=== PATIENT | female | born 1950 | race Two or more races ===

== ENCOUNTER 2018-09-19 06:02 | Day surgery (SDC) | payer MEDICARE, MEDICAID ==
--- NOTE | 2018-09-14 11:55 | Pre-Procedure Note/Attestation ---
Pre-Procedure Note/Attestation Complete Prior to Procedure Planned Procedure: right Procedure Narrative: 1. CATARACT EXTRACTION WITH PHACO AND PC IOL IMPLANTATION, RIGHT EYE. 2. LIMBAL RELAXING INCISION, RIGHT EYE Indications for Procedure Pre-Operative Diagnosis: 1. CATARACT ,RIGHT EYE. 2. ASTIGMATISM, RIGHT EYE. Attestation I attest that I discussed the nature of the procedure; its benefits; risks and complications; and alternatives (and the risks and benefits of such alternatives ), prior to the procedure, with the patient (or the patient's legal technology sales representative). I attest that, if there was a reasonable possibility of needing a blood transfusion, the patient (or the patient's legal technology sales representative) was given the [place] Department of Health Services standardized written summary, pursuant to the Ram[employer] [place] Blood Safety Act ([place] Health and Safety Code # 1645, as amended). I attest that I re-evaluated the patient just prior to the surgery and that there has been no change in the patient's H&P, except as documented below: George Francis MD Sep 14, 2018 11:55
[2018-09-19] VITALS (8 sets, daily range): BP systolic 113–138; BP diastolic 49–76
[~2018-09-19] VITALS: Ht 165.1 cm; Wt 56.7 kg
[~2018-09-19 06:02] MED LIST: Tetracaine 0.5% Opth 4ml Soln RIGHT EYE SCH; acetaZOLAMIDE 125mg tab ORAL ONE
[2018-09-19] MEDS: Vigamox Opth Soln 3ml RIGHT EYE SCH ×3 (06:36→06:49)
[2018-09-19] MEDS: Tropicamide 1% Opth 15ml Soln RIGHT EYE SCH ×3 (06:36→06:49)
[2018-09-19] MEDS: Diclofenac Sod 0.1% Op Soln RIGHT EYE SCH ×3 (06:37→06:49)
[2018-09-19] MEDS: Akten 3.5% 1ml Btl RIGHT EYE SCH ×3 (06:37→06:49)
[2018-09-19] MEDS: Phenylephrine 10% Opth Soln 5ml RIGHT EYE SCH ×3 (06:37→06:49)
[2018-09-19] MEDS ORDERED: MECLIZINE HCL25 MG ORAL (06:53)
[2018-09-19] MEDS ORDERED: ZETIA10 MG ORAL (06:53)
[2018-09-19] MEDS ORDERED: AMLODIPINE BESYL5 MG ORAL (06:53)
[2018-09-19] MEDS ORDERED: Propofol 200mg/20ml IV ONE (08:00)
[2018-09-19] MEDS ORDERED: fentaNYL 100 mcg/2 mL IV ONE (08:00)
[2018-09-19] MEDS ORDERED: Sterile Water Irrig 1000ml IRRIG ONE (08:00)
[2018-09-19] MEDS ORDERED: NS Irrig 1000ml ONE (08:00)
[2018-09-19] MEDS ORDERED: LR 1000ml ONE (08:00)
[2018-09-19] MEDS ORDERED: Midazolam 2mg/2ml Inj ONE (08:00)
[2018-09-19] MEDS ORDERED: BSS 15ml BTL ONE (08:01)
[2018-09-19] MEDS ORDERED: Lidocaine 1% MPF 10mg/ml 5ml ONE (08:01)
[2018-09-19] MEDS ORDERED: BSS 500ml btl ONE (08:01)
[2018-09-19] MEDS ORDERED: Dexamethasone 4mg/ml vial ONE (08:01)
[2018-09-19] MEDS ORDERED: Povidone-Iodine 5% opth solution ONE (08:01)
[2018-09-19] MEDS ORDERED: EPINEPHrine 1mg/1ml Amp ONE (08:01)
[2018-09-19] MEDS ORDERED: Sodium Hyaluronate 10 mg/ml 0.85ml ONE (08:02)
[2018-09-19] MEDS ORDERED: LR 1000ml 1,000 ML IVLG SCH (08:28)
--- NOTE | 2018-09-19 08:28 | Anethesia Preoperative Eval ---
Anesthesia Pre-op PMH/ROS General Date of Evaluation: Sep 19, 2018 Time of Evaluation: 08:10 Anesthesiologist: Lizbeth ASA Score: ASA 2 Mallampati Score Class I : Soft palate, uvula, fauces, pillars visible Class II: Soft palate, uvula, fauces visible Class III: Soft palate, base of uvula visible Class IV: Only hard plate visible Mallampati Classification: Class II Surgeon: Tito Diagnosis: R eye cataract Surgical Procedure: R eye catarct extraction Anesthesia History: none Family History: no anesthesia problems Allergies: Coded Allergies: No Known Allergies (Unverified , 09/14/18) Medications: see eMAR Patient NPO?: Yes Past Medical History Cardiovascular: Reports: HTN; Denies: CAD, [place], valve dz, arrhythmia, other Pulmonary: Denies: asthma, COPD, DELLA, other Gastrointestinal/Genitourinary: Reports: GERD; Denies: CRI, ESRD, other Neurologic/Psychiatric: Denies: dementia, CVA, depression/anxiety, TIA, other Endocrine: Denies: DM, hypothyroidism, steroids, other HEENT: Denies: cataract (L), cataract (R), glaucoma, ATKA (L), ATKA (R), other Hematology/Immune: Denies: anemia, DVT, bleeding disorder, other Musculoskeletal/Integumentary: Reports: DJD; Denies: OA, RA, DDD, edema, other PMH Narrative: as above PSxH Narrative: Bilateral pterygium Anesthesia Pre-op Phys. Exam Physician Exam Last Vital Signs Date Time Temp Pulse Resp B/P (MAP) Pulse Ox O2 Delivery O2 Flow Rate FiO2 09/19/18 07:01 Room Air 09/19/18 06:44 98.0 65 20 124/72 98 Constitutional: NAD Neurologic: CN 2-12 intact Cardiovascular: RRR Respiratory: CTA Gastrointestinal: S/NT/ND Airway Exam Mallampati Score: Class II MO: full Neck: flexible Teeth: missing Dentures: upper, lower Anesthesia Pre-op A/P Labs see chart Studies Pre-op Studies: EKG - NSR Risk Assessment & Plan Assessment: ASA 2 Plan: MAC Status Change Before Surgery: No Pre-Antibiotics Drug: none Paddy Nieves MD Sep 19, 2018 08:28
[2018-09-19] MEDS ORDERED: DiphenhydrAMINE 50mg/ml Inj IVP PRN (08:30)
[2018-09-19] MEDS ORDERED: fentaNYL 100 mcg/2 mL IV PRN (08:30)
--- NOTE | 2018-09-19 08:54 | Immediate Post-Op Evaluation ---
Immediate Post-Op Evalulation Immediate Post-Op Evalulation Procedure: R eye cataract extraction with IOL Date of Evaluation: Sep 19, 2018 Time of Evaluation: 08:53 IV Fluids: 300 Blood Products: n0ne Estimated Blood Loss: none Urinary Output: none Blood Pressure Systolic: 128 Blood Pressure Diastolic: 74 Pulse Rate: 68 Respiratory Rate: 20 O2 Sat by Pulse Oximetry: 99 Temperature (Fahrenheit): 97.5 Pain Score (1-10): 1 Nausea: No Vomiting: No Complications none Patient Status: awake, patent, none Hydration Status: adequate Paddy Nieves MD Sep 19, 2018 08:54
[2018-09-19] MEDS ORDERED: acetaZOLAMIDE 125mg tab ONE (09:07)
--- NOTE | 2018-09-19 10:29 | 48 Hour Post Anesthesia Eval ---
Post Anesthesia Evaluation Procedure: R eye cataract extraction with IOL Date of Evaluation: Sep 19, 2018 Time of Evaluation: 10:28 Blood Pressure Systolic: 138 0: 76 Pulse Rate: 72 Respiratory Rate: 20 Temperature (Fahrenheit): 97.6 O2 Sat by Pulse Oximetry: 98 Airway: patent Nausea: No Vomiting: No Pain Intensity: 2 Hydration Status: adequate Cardiopulmonary Status: stable Mental Status/LOC: patient returned to baseline Follow-up Care/Observations: n/a Post-Anesthesia Complications: none Follow-up care needed: ready to discharge Paddy Nieves MD Sep 19, 2018 10:29
--- NOTE | 2018-09-19 10:56 | Discharge Summary ---
Discharge Summary Discharge Summary Discharge Summary DATE OF ADMISSION:09/19/2018 DATE OF DISCHARGE: 09/19/2018 REASON FOR HOSPITALIZATION: 1- Cataract right eye 2- Astigmatism, right eye SURGERY PERFORMED: 1- Cataract extraction with phaco, right eye 2- LRI OD CONDITION IN THE HOSPITAL:The patient tolerated the surgery without complications. DISCHARGE CONDITION: The patient was stable at discharge. DISCHARGE MEDICATIONS: 1. Vigamox eye drops one drop q.i.d, OD 2. Prednisolone eye drop qid, OD 3. Prolenza one drop QD, OD POSTOPERATIVE ORDERS: The patient has to rest at home. No bending, No lifting, No watching Television tonight. POSTOPERATIVE FOLLOW UP: The patient will be followed in my office tomorrow morning at 7 o'clock. George Francis MD Sep 19, 2018 10:56
--- NOTE | 2018-09-19 11:01 | Brief Operative Note ---
Immediate Post Operative Note Operative Note Chief Complaint: Blurry vision difficulty driving and reading, right eye Pre-op Diagnosis: 1. CATARACT ,RIGHT EYE. 2. ASTIGMATISM, RIGHT EYE. Procedure: 1- Cataract extraction with phaco and PC IOl implantation, right eye. 2- Limbal relaxing incision ( LRI ), right eye Post-op Diagnosis: same as pre-op Surgeon: George Francis MD Traffic Control Signaler: None Additional Surgeons: None Anesthesiologist: Dr. Nieves Anesthesia: MAC Specimen: none Complications: none Condition: stable Fluids: 400ml Estimated Blood Loss: none Drains: none Implant(s) used?: Yes - Monofocal PC IOL Implanted in the right eye without complication George Francis MD Sep 19, 2018 11:01
--- NOTE | 2018-09-21 13:13 | Operative Note - Dictated ---
DATE OF OPERATION: 09/19/2018 FACILITY: [facility]. SURGEON: George Francis M.D. VICE PRESIDENT OF PROCUREMENT: None. ANESTHESIOLOGIST: Paddy Nieves M.D. ANESTHESIA: Monitored anesthesia care (MAC). PREOPERATIVE DIAGNOSES: 1. Cataract of the right eye. 2. Astigmatism, right eye. POSTOPERATIVE DIAGNOSES: 1. Cataract of the right eye. 2. Astigmatism, right eye. SURGERY PERFORMED: 1. Cataract extraction with phacoemulsification and posterior chamber intraocular lens implantation in the right eye. 2. Limbal relaxing incision (LRI), right eye. INDICATION FOR SURGERY: The patient is a 68-year-old lady with history of osteoarthritis, coronary artery disease, hypertension, hypercholesterolemia. The patient is taking atorvastatin, aspirin, losartan/hydrochlorothiazide mg, and metoprolol succinate. She is a former smoker, but now denies smoking. She does not drink. She is not allergic to any medications. She is complaining of blurry vision in the right eye. She has had previous surgeries in both eyes, in the right eye and the left eye. On examination of the right eye, the cornea is clear, but there is a scar of recent surgery including the cornea and that is why the patient had some astigmatism. Anterior chamber is clean and quiet. Pupillary reflexes normal. There is no RAPD. Funduscopy showed macula. The periphery retina is flat. The optic disk is normal. To improve her vision in the right eye, the cataract has to be removed and posterior chamber intraocular lens has to be implanted. The astigmatism has to be addressed as well. INFORMED CONSENT: The nature of the surgery, risks, benefits, alternatives, and potential complications were all explained in detail to the patient. The potential complications including, but not limited to bleeding, infection, posterior capsular rupture, lens subluxation, flat anterior chamber, iris prolapse, uveitis, corneal edema, macular edema, endophthalmitis, retinal detachment, loss of vision, and even loss of the eye were all explained in detail to the patient. The patient voiced understanding and accepted all the complications. The alternatives including accommodating lens, multifocal lens, toric lens, and conventional cataract surgery with limbal relaxing incision for treatment of astigmatism all were explained to the patient in detail, the patient voiced understanding. The patient elected to have cataract surgery with insertion of multifocal lens. The patient voiced understanding. The patient elected to have conventional cataract surgery with insertion of multifocal lens and also the patient wishing to have limbal relaxing incision (LRI) for treatment of astigmatism. Then she signed the consent form, which is in the chart. DESCRIPTION OF SURGERY AND FINDINGS: Following that, the patient taken to the operating room in a stable condition. Lidocaine gel, Akten 3.5% applied to the conjunctiva of the right eye. Anesthesia was given by the anesthesiologist, Dr. Nieves. After adequate anesthesia and sedation had been achieved, the right eye was prepped and draped in a sterile fashion for intraocular surgery. Following that, a speculum was placed in the right eye. The patient was taken to the operation room, the cornea was marked at 180 and 90 meridian. In the operating room, using a corneal marker and marking pen, the steep meridian of the cornea was marked. Following that, using a shahbaz knife with 550 micron blade, two parallel incisions were placed on the steep meridian of the cornea to treat the astigmatism. Following that, using a Super Sharp knife, a clear corneal side port was created. A 1% lidocaine without preservative (MPF) was injected into the anterior chamber. Viscoelastic agent, Healon, was injected into the anterior chamber. Following that, using a 2.8 mm keratome, clear corneal temporal keratotomy was performed. Viscoelastic agent Healon was injected into the anterior chamber again. Following that, an anterior capsulotomy in the fashion of capsulorrhexis was performed under the viscoelastic agent beautifully. Following that, all the viscoelastic agent was removed from the anterior chamber. Following that, hydrodissection and hydrodelineation was performed using balanced salt solution and the nucleus was freed. Following that, a clear fresh viscoelastic agent, Healon, was injected into the anterior chamber again to protect the endothelium of the cornea. Following that, using a phacoemulsification machine in the fashion of horizontal chop, the nucleus was removed in toto. Following that, cortical material was removed from the capsular bag using irrigation and aspiration unit. Following that, the capsular bag was filled with viscoelastic agent, Healon. Following that, a +23.5 diopter PCB00 foldable IOL with serial number [id number] was injected into the capsular bag. Using a Sinskey hook, the lens was manipulated within the proper position. Following that, all viscoelastic agent was removed from the anterior and posterior part of the lens and the anterior chamber was filled with balanced salt solution. The wound was checked for leakage and there was no leakage. Vigamox eye drops were applied to the conjunctiva of the right eye. At the end of the surgery, the eye was patched with a clear, sterile fenestrated shield. Following that, the patient was transferred to the recovery room. In the recovery room, 125 mg Diamox was given by mouth stat. Postoperative orders and directions were given. The patient will be discharged home upon stabilization. The patient will be followed in the office tomorrow morning. George Francis M.D. DR: Charmaine JOB#: [id number] CC:
== END 2018-09-19 10:05 | disposition home or self-care (01) ==
LOC: SUR 06:02 → EDBD 07:30 → SUR 10:05
DX: H26.9 Unspecified cataract (principal); H52.201 Unspecified astigmatism, right eye; I10 Essential (primary) hypertension; K21.9 Gastro-esophageal reflux disease without esophagitis; M19.90 Unspecified osteoarthritis, unspecified site; E78.00 Pure hypercholesterolemia, unspecified; Z79.82 Long term (current) use of aspirin; Z87.891 Personal history of nicotine dependence; I11.9 Hypertensive heart disease without heart failure
CPT/HCPCS: 65772; 66984; J0171; J1100; J2250; J2704; J3010; V2632; 94003; 94150

== ENCOUNTER 2018-10-17 06:26 | Day surgery (SDC) | payer MEDICARE, MEDICAID ==
--- NOTE | 2018-10-16 08:46 | Pre-Procedure Note/Attestation ---
Pre-Procedure Note/Attestation Complete Prior to Procedure Planned Procedure: left Procedure Narrative: Blurry vision and difficulty reading and watching TV, and driving. Indications for Procedure Pre-Operative Diagnosis: 1-Cataract , left eye. 2- Astigmatism, Left eye. Attestation I attest that I discussed the nature of the procedure; its benefits; risks and complications; and alternatives (and the risks and benefits of such alternatives ), prior to the procedure, with the patient (or the patient's legal sales representative groceries). I attest that, if there was a reasonable possibility of needing a blood transfusion, the patient (or the patient's legal sales representative groceries) was given the [place] Department of Health Services standardized written summary, pursuant to the [employer] [place] Blood Safety Act ([place] Health and Safety Code # 1645, as amended). I attest that I re-evaluated the patient just prior to the surgery and that there has been no change in the patient's H&P, except as documented below: George Francis MD Oct 16, 2018 08:46
[~2018-10-17] VITALS: Ht 160 cm; Wt 56.7 kg
[2018-10-17] VITALS (9 sets, daily range): BP systolic 122–151; BP diastolic 64–77
[~2018-10-17 06:26] MED LIST changes: +AMLODIPINE BESYL5 MG ORAL; +MECLIZINE HCL25 MG ORAL; -Tetracaine 0.5% Opth 4ml Soln RIGHT EYE SCH; +ZETIA10 MG ORAL; -acetaZOLAMIDE 125mg tab ORAL ONE
[2018-10-17] MEDS ORDERED: Phenylephrine 10% Opth Soln 5ml ONE (06:51)
[2018-10-17] MEDS ORDERED: Akten 3.5% 1ml Btl ONE (06:51)
[2018-10-17] MEDS ORDERED: Tropicamide 1% Opth 15ml Soln ONE (06:51)
[2018-10-17] MEDS ORDERED: Vigamox Opth Soln 3ml ONE (06:52)
[2018-10-17] MEDS ORDERED: Diclofenac Sod 0.1% Op Soln ONE (06:52)
[2018-10-17] MEDS: Phenylephrine 10% Opth Soln 5ml LEFT EYE SCH ×3 (07:02→07:29)
[2018-10-17] MEDS: Tropicamide 1% Opth 15ml Soln LEFT EYE SCH ×3 (07:02→07:29)
[2018-10-17] MEDS: Vigamox Opth Soln 3ml LEFT EYE SCH ×3 (07:03→07:29)
[2018-10-17] MEDS: Diclofenac Sod 0.1% Op Soln LEFT EYE SCH ×3 (07:03→07:29)
[2018-10-17] MEDS ORDERED: EPINEPHrine 1mg/1ml Amp ONE (07:10)
[2018-10-17] MEDS ORDERED: Sodium Hyaluronate 10 mg/ml 0.85ml ONE (07:10)
[2018-10-17] MEDS ORDERED: Dexamethasone 4mg/ml vial ONE (07:10)
[2018-10-17] MEDS ORDERED: Povidone-Iodine 5% opth solution ONE (07:10)
[2018-10-17] MEDS ORDERED: Lidocaine 1% MPF 10mg/ml 5ml ONE ×2 (07:10→09:18)
[2018-10-17] MEDS ORDERED: BSS 500ml btl ONE (07:10)
[2018-10-17] MEDS ORDERED: BSS 15ml BTL ONE (07:10)
[2018-10-17] MEDS ORDERED: LR 1000ml 1,000 ML IVLG SCH (08:41)
--- NOTE | 2018-10-17 08:41 | Anethesia Preoperative Eval ---
Anesthesia Pre-op PMH/ROS General Date of Evaluation: Oct 17, 2018 Anesthesiologist: Morgan ASA Score: ASA 2 Mallampati Score Class I : Soft palate, uvula, fauces, pillars visible Class II: Soft palate, uvula, fauces visible Class III: Soft palate, base of uvula visible Class IV: Only hard plate visible Mallampati Classification: Class II Surgeon: Tito Diagnosis: Left cataract Surgical Procedure: Left cataract xtraction wtih IOL Anesthesia History: none Family History: no anesthesia problems Allergies: Coded Allergies: No Known Allergies (Unverified , 09/14/18) Medications: see eMAR Patient NPO?: Yes NPO Date: Oct 16, 2018 NPO Time: 22:00 Past Medical History Cardiovascular: Reports: HTN, other - HLD; Denies: CAD, [place], valve dz, arrhythmia Pulmonary: Reports: asthma; Denies: COPD, DELLA, other Gastrointestinal/Genitourinary: Denies: GERD, CRI, ESRD, other Neurologic/Psychiatric: Reports: depression/anxiety, other - vertigo; Denies: dementia, CVA, TIA Endocrine: Denies: DM, hypothyroidism, steroids, other HEENT: Reports: cataract (L); Denies: cataract (R), glaucoma, DEERING (L), DEERING (R), other Hematology/Immune: Denies: anemia, DVT, bleeding disorder, other Musculoskeletal/Integumentary: Reports: OA; Denies: RA, DJD, DDD, edema, other PSxH Narrative: right cataract Anesthesia Pre-op Phys. Exam Physician Exam Last Vital Signs Date Time Temp Pulse Resp B/P (MAP) Pulse Ox O2 Delivery O2 Flow Rate FiO2 10/17/18 07:27 Room Air 10/17/18 07:08 97.6 67 18 135/77 98 Constitutional: NAD Cardiovascular: RRR Respiratory: CTA Airway Exam Mallampati Score: Class II MO: limited ROM: limited Anesthesia Pre-op A/P Labs see chart Studies Pre-op Studies: EKG - sr Risk Assessment & Plan Assessment: ASA II Plan: MAC Status Change Before Surgery: No Pre-Antibiotics Drug: N/A Rocio Gold MD Oct 17, 2018 08:41
[2018-10-17] MEDS ORDERED: LORazepam Inj 2mg/ml 1ml IV PRN (08:45)
[2018-10-17] MEDS ORDERED: DiphenhydrAMINE 50mg/ml Inj IVP PRN (08:45)
[2018-10-17] MEDS ORDERED: Sterile Water Irrig 1000ml IRRIG ONE (09:00)
[2018-10-17] MEDS ORDERED: LR 1000ml ONE (09:00)
[2018-10-17] MEDS ORDERED: fentaNYL 100 mcg/2 mL IV ONE (09:18)
[2018-10-17] MEDS ORDERED: Akten 3.5% 1ml Btl LEFT EYE ONE (09:30)
--- NOTE | 2018-10-17 10:03 | Immediate Post-Op Evaluation ---
Immediate Post-Op Evalulation Immediate Post-Op Evalulation Procedure: Left cataract extraction with IOL Date of Evaluation: Oct 17, 2018 Time of Evaluation: 10:05 IV Fluids: 400 Blood Products: 0 Estimated Blood Loss: 0 Urinary Output: 0 Blood Pressure Systolic: 151 Blood Pressure Diastolic: 75 Pulse Rate: 66 Respiratory Rate: 14 O2 Sat by Pulse Oximetry: 99 Temperature (Fahrenheit): 97.3 Pain Score (1-10): 0 Nausea: No Vomiting: No Complications 0 Patient Status: awake, reacts, patent, none Hydration Status: adequate Drug: N/A Rocio Gold MD Oct 17, 2018 10:03
--- NOTE | 2018-10-17 10:03 | 48 Hour Post Anesthesia Eval ---
Post Anesthesia Evaluation Procedure: Left cataract extraction with IOL Date of Evaluation: Oct 17, 2018 Airway: patent Nausea: No Vomiting: No Pain Intensity: 0 Hydration Status: adequate Cardiopulmonary Status: at baseline Mental Status/LOC: patient returned to baseline Post-Anesthesia Complications: 0 Follow-up care needed: ready to discharge Rocio Gold MD Oct 17, 2018 10:03
--- NOTE | 2018-10-17 10:16 | Discharge Summary ---
Discharge Summary Discharge Summary Discharge Summary DATE OF ADMISSION: 10/17/18 DATE OF DISCHARGE: o10/17/18 REASON FOR HOSPITALIZATION: 1- Cataract, left eye 2- Astigmatism, left eye. SURGERY PERFORMED: 1- Cataract extraction with phaco 2- LRI, OS CONDITION IN THE HOSPITAL:The patient tolerated the surgery without complications. DISCHARGE CONDITION: The patient was stable at discharge. DISCHARGE MEDICATIONS: 1. Vigamox eye drops one drop q.i.d, OS 2. Prednisolone one drop q.i.d, OS 3. Prolensa, one drop QD, OS POSTOPERATIVE ORDERS: The patient has to rest at home. No bending, No lifting, No watching Television tonight. POSTOPERATIVE FOLLOW UP: The patient will be followed in my office tomorrow morning at 7 o'clock. George Francis MD Oct 17, 2018 10:16
--- NOTE | 2018-10-17 10:19 | Brief Operative Note ---
Immediate Post Operative Note Operative Note Chief Complaint: Blurry vision difficulty driving and reading, left eye Pre-op Diagnosis: 1-Cataract , left eye. 2- Astigmatism, Left eye. Procedure: 1- Cataract extraction with phaco and PC IOL Implantation, Left eye 2-Limbal relaxing incision ( LRI ), left eye Surgeon: George brito MD Head Porter Baggage: none Additional Surgeons: none Anesthesiologist: Dr. Mora Anesthesia: MAC Specimen: none Complications: none Condition: stable Fluids: 300ml Estimated Blood Loss: none Drains: none Implant(s) used?: Yes - Monofocal PC IOL implanted in the left eye without complication George Brito MD Oct 17, 2018 10:19
[2018-10-17] MEDS ORDERED: acetaZOLAMIDE 125mg tab ONE (10:29)
[2018-10-17] MEDS ORDERED: acetaZOLAMIDE 125mg tab ORAL SCH (10:30)
--- NOTE | 2018-10-17 11:00 | Pre-op HX & Phy Repo 2 SIG ---
DATE OF ADMISSION: 10/17/2018 PRESURGICAL INTERNAL MEDICINE HISTORY AND PHYSICAL REASON FOR EVALUATION: I was asked by Dr. George Francis to see this 68-year-old female, who is going for elective surgery on the left eye. The patient has age-related cataract, left eye. Please see History and Physical by Dr. George Francis. PAST MEDICAL HISTORY: Remarkable for hypertension, history of bronchial asthma attack three years ago, and history of hyperlipidemia. Denies history of stroke or seizures. No history of Parkinson disease. Denies history of anemia, thyroid problem, or renal failure. The patient has no history of heart attack. Denies chest pain or palpitation. The patient has no history of diabetes or arthritis. The patient has a history of hyperlipidemia. PAST SURGICAL HISTORY: Right eye, cataract. MEDICATIONS: Amlodipine, meclizine, simvastatin, and vitamin D. ALLERGIES: Not known. HABITS: Smoke for approximately 50 years. Currently smoking about five cigarettes a day. Denies alcohol habit or street drugs. FAMILY HISTORY: The patient's father from cancer of gallbladder and mother of old age, 92. PHYSICAL EXAMINATION: GENERAL: The patient is alert, small-framed female. Weight 125 pounds and 5 feet 3 inches tall. VITAL SIGNS: Blood pressure 135/77, temperature 97.6, pulse regular at 67 per minute, and O2 saturation 98% on room air. SKIN: Clear, warm, and dry. No rashes or ulcers. LYMPH NODES: Not enlarged. HEENT: Head, normocephalic. Eyes, full description per Dr. George Francis. Mouth, clear and moist. No dentures. NECK: No jugular venous distention. Carotids artery +2. Trachea midline. CHEST: No deformity or asymmetry. LUNGS: Clear to auscultation and percussion. No rales or rhonchi. No wheezing. ABDOMEN: Soft, benign. Liver and spleen not enlarged. No rebound. EXTREMITIES: No peripheral edema. No varicose veins. No calf tenderness. No deformity. GENITOURINARY TRACT: Denies dysuria. No CVA tenderness. NERVOUS SYSTEM: No tremor. No nystagmus. DIAGNOSTIC DATA: EKG, sinus rhythm, T-wave abnormality, consider ischemia. The patient did not eat or drink from 10:30 p.m. yesterday. LABORATORY DATA: White blood cells 6.1, hemoglobin 14.8, hematocrit 43.6. Blood sugar 97. BUN 12, creatinine 0.8, calcium 8.2, sodium 140, potassium 4.6. IMPRESSION: 1. Cataract, left eye. 2. Hypertension, controlled. 3. History of bronchial asthma. 4. Hyperlipidemia. 5. EKG changes with T-wave abnormal, consider ischemia. PLAN: Cataract extraction, left eye with intraocular lens implant per Dr. George Francis. CONCLUSION: The patient has had EKG changes. She is asymptomatic. Blood pressure controlled. The patient did not eat or drink from 10:30 p.m. yesterday. The patient's laboratory work in normal limits. The patient's condition optimized for surgery. Thank you very much, Dr. Francis, for privilege to participate in presurgical care of this interesting patient. Aline Khalil M.D. DR: JONATHAN JOB#: [id number] CC:
--- NOTE | 2018-10-18 01:15 | Operative Note - Dictated ---
DATE OF OPERATION: 10/17/2018 FACILITY: [facility]. SURGEON: George Francis M.D. FRIEND OF THE COURT: None. ANESTHESIOLOGIST: Dr. Mora. ANESTHESIA: Monitored anesthesia care (MAC). PREOPERATIVE DIAGNOSES: 1. Cataract, left eye. 2. Astigmatism, left eye. POSTOPERATIVE DIAGNOSES: 1. Cataract, left eye. 2. Astigmatism, left eye. SURGERY PERFORMED: 1. Cataract extraction with phacoemulsification and posterior chamber intraocular lens implantation in the left eye. 2. Limbal relaxing incision (LRI) in the left eye. INDICATION FOR SURGERY: The patient is a 68-year-old lady with history of osteoarthritis, coronary artery disease, hypertension, hypercholesterolemia. The patient is taking atorvastatin, aspirin, losartan/hydrochlorothiazide, and metoprolol succinate. She is a former smoker, but now denies smoking. She does not drink. She is not allergic to any medications. She is complaining of blurry vision in the left eye. She has had cataract surgery in the right one month ago and she is happy with the result. She has had previous surgeries in both eyes for pterygium as well. The cornea had scar because of her previous treatment surgery and still has recurrent pterygium. Anterior chamber is clean and quiet but shallow. Pupillary reflexes normal. There is no RAPD. Funduscopy showed normal macula. The periphery retina is flat. The optic disk is normal. To improve her vision in the left eye, the cataract has to be removed and posterior chamber intraocular lens has to be implanted. The astigmatism has to be addressed as well. INFORMED CONSENT: The nature of the surgery, risks, benefits, alternatives, and potential complications were all explained in detail to the patient. The potential complications including, but not limited to bleeding, infection, posterior capsular rupture, lens subluxation, flat anterior chamber, iris prolapse, uveitis, corneal edema, macular edema, endophthalmitis, retinal detachment, loss of vision, and even loss of the eye and even were all explained in detail to the patient. The patient voiced understanding and accepted all the complications. The alternatives including accommodating lens, multifocal lens, toric lens, and conventional cataract surgery with limbal relaxing incision for treatment of astigmatism all were explained to the patient and the patient voiced understanding. The patient elected to have conventional cataract surgery with insertion of monofocal lens and she agreed to have limbal relaxing incision (LRI) for treatment of astigmatism. Then she signed the consent form, which is in the chart. DESCRIPTION OF SURGERY AND FINDINGS: Following that, the patient taken to the operating room in a stable condition. Lidocaine gel, Akten 3.5% applied to the conjunctiva of the left eye. IV sedation was given by the anesthesiologist, Dr. Mora. After adequate anesthesia and sedation had been achieved, the left eye was prepped and draped in a sterile fashion for intraocular surgery. Following that, a speculum was placed in the left eye. Before the patient was taken to the operation room, the cornea was marked at 180 and 90 meridian. In the operating room, using a corneal marker and marking pen, the steep meridian of the cornea was marked. Following that, using a shahbaz knife with 550 micron blade, two parallel incisions were placed on the steep meridian of the cornea to treat the astigmatism. Following that, using a Super Sharp knife, a clear corneal side port was created. A 1% lidocaine without preservative (MPF) was injected into the anterior chamber. Viscoelastic agent, Healon, was injected into the anterior chamber. Following that, using a 2.8 mm keratome, clear corneal temporal keratotomy was performed. Viscoelastic agent Healon was injected into the anterior chamber again. Following that, an anterior capsulotomy was performed in the fashion of capsulorrhexis beautifully. Following that, whole viscoelastic agent was removed from the anterior chamber. Following that, hydrodissection and hydrodelineation was performed and nucleus was freed. Following that, a clear fresh viscoelastic agent, Healon, was injected into the anterior chamber to protect the endothelium of the cornea. Following that, using a phacoemulsification machine in the fashion of horizontal chop, the nucleus was removed in toto. Following that, cortical material was removed from the capsular bag and capsular bag was polished. Following that, the capsular bag was filled with viscoelastic agent, Healon. Following that, a +24.0 diopter PCB00 foldable IOL with serial number was injected into the capsular bag. Using a Sinskey hook, the lens was manipulated within the proper position. Following that, whole viscoelastic agent was removed from the anterior and posterior part of the lens and the anterior chamber was filled with balanced salt solution. Following that, the wound was hydrated with balanced salt solution. Following that, the wound was checked for leakage and there was no leakage. Vigamox eye drops were applied to the conjunctiva of the left eye. The patient tolerated surgery without complications. At the end of the surgery, the eye was patched with a clear, sterile fenestrated shield. Following that, the patient was transferred to the recovery room. In the recovery room, 125 mg Diamox was given by mouth stat. Postoperative orders and directions were given. The patient will be discharged home upon stabilization. George Francis M.D. DR: Devorah JOB#: [id number] CC:
--- NOTE | 2018-10-18 13:57 | Physician Query ---
--------- THIS DOCUMENT IS A PERMANENT PART OF THE MEDICAL RECORD --------- PLEASE COMPLETE DOCUMENT BEFORE SIGNING Dear Dr. SNYDER Date: Revenue Analyst/CDS Name: SULEMA, TIFFANY Exercise your independent professional judgment when responding to the query. Questions asked do not imply a particular answer is desired or expected. We greatly appreciate your clarification on this issue. CLINICAL DOCUMENTATION STATES: Date of procedure: 10/17/2018 PREOPERATIVE DIAGNOSES: 1. Cataract, left eye. 2. Astigmatism, left eye. POSTOPERATIVE DIAGNOSES: 1. Cataract, left eye. 2. Astigmatism, left eye. She is complaining of blurry vision in the left eye. She has had cataract surgery in the right one month ago and she is happy with the result. She has had previous surgeries in both eyes for pterygium as well. The cornea had scar because of her previous treatment surgery and still has recurrent pterygium. Anterior chamber is clean and quiet but shallow. Pupillary reflexes normal. There is no RAPD. Funduscopy showed normal macula. The periphery retina is flat. The optic disk is normal. To improve her vision in the left eye, the cataract has to be removed and posterior chamber intraocular lens has to be implanted. The astigmatism has to be addressed as well. Please respond to the following question: PLEASE SPECIFY, IF KNOWN, THE TYPE OF CATARACT IN THE LEFT EYE? PHYSICIAN RESPONSE: COLTON SNYDER M.D. DATE & TIME [facility]
== END 2018-10-17 11:15 | disposition home or self-care (01) ==
LOC: SUR 06:26
DX: H25.12 Age-related nuclear cataract, left eye (principal); M19.90 Unspecified osteoarthritis, unspecified site; I11.9 Hypertensive heart disease without heart failure; I10 Essential (primary) hypertension; E78.00 Pure hypercholesterolemia, unspecified; Z79.82 Long term (current) use of aspirin; Z87.891 Personal history of nicotine dependence; E78.5 Hyperlipidemia, unspecified; F32.9 Major depressive disorder, single episode, unspecified; F41.9 Anxiety disorder, unspecified
CPT/HCPCS: 66984; 66999; J0171; J1100; J3010; V2632; 94003; 94150

== ENCOUNTER 2019-04-03 06:07 | Day surgery (SDC) | payer MEDICARE, MEDICAID ==
[2019-04-03] VITALS (11 sets, daily range): BP systolic 136–163; BP diastolic 64–79
[~2019-04-03] VITALS: Ht 160 cm; Wt 51.7 kg
[~2019-04-03 06:07] MED LIST changes: +Tetracaine 0.5% Opth 4ml Soln LEFT EYE ONE
[2019-04-03 06:48] LABS: BASOPHILS % (AUTO) 1.1 % (0.0-2.0); HEMATOCRIT 44.7 % (37.0-47.0); LYMPHOCYTES % (AUTO) 34.6 % (20.0-45.0); MEAN CORPUSCULAR VOLUME 85 FL (80-99); MONOCYTES % (AUTO) 6.9 % (1.0-10.0); NEUTROPHILS % (AUTO) 56.5 % (45.0-75.0); PLATELET COUNT 280 K/UL (150-450); RED BLOOD COUNT 5.28 M/UL (4.20-5.40); WHITE BLOOD COUNT 7.9 K/UL (4.8-10.8)
[2019-04-03] MEDS ORDERED: METOPROLOL SUCC25 MG ORAL (06:50)
[2019-04-03] MEDS ORDERED: ASPIRIN81 MG ORAL (06:50)
[2019-04-03 06:57] LABS: ANION GAP 10 mmol/L (5-15); BLOOD UREA NITROGEN 13 mg/dL (7-18); CALCIUM 8.9 MG/DL (8.5-10.1); CARBON DIOXIDE 26 MMOL/L (21-32); CHLORIDE 103 MMOL/L (98-107); CREATININE 0.9 MG/DL (0.55-1.30); POTASSIUM 3.7 MMOL/L (3.5-5.1); SODIUM 139 MMOL/L (136-145)
[2019-04-03] MEDS ORDERED: Maxitrol Opth Susp 5ml ONE (06:59)
[2019-04-03] MEDS ORDERED: Polysporin Opth Oint 3.5gm ONE (06:59)
[2019-04-03] MEDS ORDERED: BSS 15ml BTL ONE (07:00)
[2019-04-03] MEDS ORDERED: Povidone-Iodine 5% opth solution ONE (07:00)
[2019-04-03 07:08] LABS: INR 0.9 (0.9-1.1)
[2019-04-03] MEDS ORDERED: Sodium Chloride 10ml vial INJ ONE (07:11)
[2019-04-03] MEDS ORDERED: Lidocaine 1% MPF 10mg/ml 5ml ONE (07:11)
[2019-04-03] MEDS ORDERED: LR 1000ml 1,000 ML IVLG SCH (07:20)
--- NOTE | 2019-04-03 07:23 | Anethesia Preoperative Eval ---
Anesthesia Pre-op PMH/ROS General Date of Evaluation: Apr 03, 2019 Time of Evaluation: 07:24 Anesthesiologist: Halle ASA Score: ASA 3 Mallampati Score Class I : Soft palate, uvula, fauces, pillars visible Class II: Soft palate, uvula, fauces visible Class III: Soft palate, base of uvula visible Class IV: Only hard plate visible Mallampati Classification: Class II Surgeon: Tito Diagnosis: Pterygium OS Surgical Procedure: Pterygium Removal OS Anesthesia History: none Family History: no anesthesia problems Allergies: Coded Allergies: No Known Allergies (Unverified , 09/14/18) Medications: see eMAR Patient NPO?: Yes Past Medical History Cardiovascular: Reports: HTN, other - HL Pulmonary: Reports: asthma Neurologic/Psychiatric: Reports: depression/anxiety HEENT: Reports: cataract (L), cataract (R) Musculoskeletal/Integumentary: Reports: OA Anesthesia Pre-op Phys. Exam Physician Exam Last Vital Signs Date Time Temp Pulse Resp B/P (MAP) Pulse Ox O2 Delivery O2 Flow Rate FiO2 04/03/19 06:58 Room Air 04/03/19 06:46 97.8 70 18 136/64 98 Constitutional: NAD Neurologic: CN 2-12 intact Cardiovascular: RRR Respiratory: CTA Gastrointestinal: S/NT/ND Airway Exam Mallampati Score: Class II MO: full ROM: limited Teeth: missing, intact Anesthesia Pre-op A/P Labs Hematology Test 04/03/19 06:30 White Blood Count 7.9 K/UL (4.8-10.8) Red Blood Count 5.28 M/UL (4.20-5.40) Hemoglobin 15.0 G/DL (12.0-16.0) Hematocrit 44.7 % (37.0-47.0) Mean Corpuscular Volume 85 FL (80-99) Mean Corpuscular Hemoglobin 28.5 PG (27.0-31.0) Mean Corpuscular Hemoglobin Concent 33.6 G/DL (32.0-36.0) Red Cell Distribution Width 13.0 % (11.6-14.8) Platelet Count 280 K/UL (150-450) Mean Platelet Volume 6.9 FL (6.5-10.1) Neutrophils (%) (Auto) 56.5 % (45.0-75.0) Lymphocytes (%) (Auto) 34.6 % (20.0-45.0) Monocytes (%) (Auto) 6.9 % (1.0-10.0) Eosinophils (%) (Auto) 1.0 % (0.0-3.0) Basophils (%) (Auto) 1.1 % (0.0-2.0) Coagulation Test 04/03/19 06:30 Prothrombin Time 9.7 SEC (9.30-11.50) Prothromb Time International Ratio 0.9 (0.9-1.1) Activated Partial Thromboplast Time 30 SEC (23-33) Chemistry Test 04/03/19 06:30 Sodium Level 139 MMOL/L (136-145) Potassium Level 3.7 MMOL/L (3.5-5.1) Chloride Level 103 MMOL/L (98-107) Carbon Dioxide Level 26 MMOL/L (21-32) Anion Gap 10 mmol/L (5-15) Blood Urea Nitrogen 13 mg/dL (7-18) Creatinine 0.9 MG/DL (0.55-1.30) Estimat Glomerular Filtration Rate > 60 mL/min (>60) Glucose Level 99 MG/DL (74-106) Calcium Level 8.9 MG/DL (8.5-10.1) Risk Assessment & Plan Assessment: ASA 3 Plan: GA Status Change Before Surgery: Teo Obando MD Apr 03, 2019 07:23
[2019-04-03] MEDS ORDERED: DiphenhydrAMINE 50mg/ml Inj IVP PRN (07:30)
[2019-04-03] MEDS ORDERED: Meperidine 50mg/ml Inj(FOR RIGORS ONLY) IVP PRN (07:30)
[2019-04-03] MEDS ORDERED: NS Irrig 1000ml ONE (07:30)
[2019-04-03] MEDS ORDERED: Propofol 200mg/20ml IV ONE (07:30)
[2019-04-03] MEDS ORDERED: Labetalol 5mg/ml 20ml vial IV PRN (07:30)
[2019-04-03] MEDS ORDERED: LORazepam Inj 2mg/ml 1ml IV PRN (07:30)
[2019-04-03] MEDS ORDERED: Hydromorphone 0.5mg/0.5ml inj IVP PRN (07:30)
[2019-04-03] MEDS ORDERED: LR 1000ml ONE (07:30)
[2019-04-03] MEDS ORDERED: oxyCODONE HCL/Acetaminophen 5/325mg ORAL PRN (07:30)
[2019-04-03] MEDS ORDERED: HYDROcodone/Acetamin 7.5/325 tab ORAL PRN (07:30)
[2019-04-03] MEDS ORDERED: Atropine Sulfate 0.4mg/ml inj IVP PRN (07:30)
[2019-04-03] MEDS ORDERED: Sterile Water Irrig 1000ml IRRIG ONE (07:30)
[2019-04-03] MEDS ORDERED: HYDROcodone/Acetamin 5/325 tab ORAL PRN (07:30)
[2019-04-03] MEDS ORDERED: Midazolam 2mg/2ml Inj IVP PRN (07:30)
[2019-04-03] MEDS ORDERED: fentaNYL 100 mcg/2 mL IV PRN (07:30)
[2019-04-03] MEDS ORDERED: Ketorolac 30mg Inj IV PRN ×2 (07:30)
[2019-04-03] MEDS ORDERED: Metoclopramide 10mg/2ml Inj IVP PRN (07:30)
--- NOTE | 2019-04-03 08:45 | Immediate Post-Op Evaluation ---
Immediate Post-Op Evalulation Immediate Post-Op Evalulation Procedure: Pterygium Removal OS Date of Evaluation: Apr 03, 2019 Time of Evaluation: 09:07 IV Fluids: 600 LR Blood Products: 0 Estimated Blood Loss: 3 Urinary Output: 0 Blood Pressure Systolic: 149 Blood Pressure Diastolic: 71 Pulse Rate: 62 Respiratory Rate: 16 O2 Sat by Pulse Oximetry: 98 Temperature (Fahrenheit): 97 Pain Score (1-10): 1 Nausea: No Vomiting: No Complications 0 Patient Status: awake, reacts, patent, none Hydration Status: adequate Teo Neri MD Apr 03, 2019 08:45
--- NOTE | 2019-04-03 08:46 | 48 Hour Post Anesthesia Eval ---
Post Anesthesia Evaluation Procedure: Pterygium Removal OS Date of Evaluation: Apr 03, 2019 Time of Evaluation: 11:12 Blood Pressure Systolic: 154 0: 69 Pulse Rate: 63 Respiratory Rate: 18 Temperature (Fahrenheit): 97.4 O2 Sat by Pulse Oximetry: 97 Airway: patent Nausea: No Vomiting: No Pain Intensity: 1 Hydration Status: adequate Cardiopulmonary Status: Stable Mental Status/LOC: patient returned to baseline Follow-up Care/Observations: 0 Post-Anesthesia Complications: 0 Follow-up care needed: ready to discharge Teo Neri MD Apr 03, 2019 08:46
--- NOTE | 2019-04-03 09:01 | Pre-Procedure Note/Attestation ---
Pre-Procedure Note/Attestation Complete Prior to Procedure Planned Procedure: bilateral Procedure Narrative: 1- giant pterygium left eye 2- corneal scar, left eye 3- syblepharon, left eye 4- cojunctivochalasis,left eye Attestation I attest that I discussed the nature of the procedure; its benefits; risks and complications; and alternatives (and the risks and benefits of such alternatives ), prior to the procedure, with the patient (or the patient's legal solar sales representative). I attest that, if there was a reasonable possibility of needing a blood transfusion, the patient (or the patient's legal solar sales representative) was given the [facility] standardized written summary, pursuant to the Ramakrishna Sylvia Blood Safety Act ([place] Health and Safety Code # 1645, as amended). I attest that I re-evaluated the patient just prior to the surgery and that there has been no change in the patient's H&P, except as documented below: George Francis MD Apr 03, 2019 09:01
--- NOTE | 2019-04-03 10:59 | Discharge Summary ---
Discharge Summary Discharge Summary Discharge Summary DATE OF ADMISSION: 04/03/19 DATE OF DISCHARGE: 04/03/19 REASON FOR HOSPITALIZATION: pain, foreign body sensation and blurry vision, left eye SURGERY PERFORMED: 1- Giant pterygum excision with conjunctival graft,left eye 2 - Superficial keratectomy, lefteye 3- syblepharon excision 4- conjunctivoplasty , left eye CONDITION IN THE HOSPITAL:The patient tolerated the surgery without complications. DISCHARGE CONDITION: The patient was stable at discharge. DISCHARGE MEDICATIONS: 1. Vigamox eye drops one drop q.i.d, OS 2. Prednisolone one drop q.i.d, OS 3. POSTOPERATIVE ORDERS: The patient has to rest at home. No bending, No lifting, No watching Television tonight. POSTOPERATIVE FOLLOW UP: The patient will be followed in my office tomorrow morning at 7 o'clock. George Francis MD Apr 03, 2019 10:59
--- NOTE | 2019-04-03 11:05 | Brief Operative Note ---
Immediate Post Operative Note Operative Note Chief Complaint: Blurry vision, foreing body sensation and pain Pre-op Diagnosis: 1- Giant pterygium, left ey 2- Corneal scar, left eye 3- Symblepharon, left eye 4- Blepharochalasis, left eye Procedure: 1- Pterygium excision with conjunctival graft 2- Superficial keratectomy, left eye 3- Symblepharon excision, left eye Post-op Diagnosis: same as pre-op Surgeon: George Francis MD Occupational Health Manager: Dr. Moseley Additional Surgeons: none Anesthesiologist: none Anesthesia: local, MAC Specimen: yes Complications: none Condition: stable Fluids: 400 ml Estimated Blood Loss: minimal Drains: none Implant(s) used?: No George Francis MD Apr 03, 2019 11:05
--- NOTE | 2019-04-03 11:30 | Pre-op HX & Phy Repo 2 SIG ---
DATE OF ADMISSION: 04/03/2019 PRESURGICAL INTERNAL MEDICINE HISTORY AND PHYSICAL DATE OF EVALUATION: 04/03/2019 REASON FOR EVALUATION: I was asked by Dr. George Francis to see this 68-year-old female, who is going for elective surgery on the left eye. The patient has a recurrence of giant pterygium. Please see Ophthalmology History and Physical by Dr. George Francis. The patient was evaluated at [facility] outpatient procedure department. The patient is alert, well-developed, well-nourished small-framed female. PAST MEDICAL HISTORY AND REVIEW OF SYSTEMS: Remarkable for hypertension, vertigo, and hyperlipidemia. No history of stroke or seizures. No history of diabetes mellitus. Denies history of renal failure, liver insufficiency. No [place]. No history of anemia. The patient has a history of bronchial asthma, last attack two years ago. PAST SURGICAL HISTORY: Right eye surgery. FAMILY HISTORY: Mother of old age of 94 and father from complication of cancer. ALLERGIES: Not known. MEDICATIONS: Present medications include amlodipine 5 mg, baby aspirin, Zetia 10 mg, meclizine 25 mg, and metoprolol 25 mg. SOCIAL HISTORY: The patient is still smoking five to six cigarettes a day for last 25 years. Denied alcohol or street drug use. PHYSICAL EXAMINATION: GENERAL: The patient is alert, small-framed female in her 60s. VITAL SIGNS: Blood pressure 136/64, temperature 97.8, pulse 70, and respirations 18. O2 saturation 98% on room air. SKIN: Clear, warm and dry. No rashes. No open wound. HEENT: Head is normocephalic and atraumatic. Nose clear. No discharge. Ears, clear. No discharge. Eyes, full description per Dr. George Francis. Mouth, clear. Upper dentures full. NECK: Supple. No jugular distention. Carotids artery +2. Trachea midline. CHEST: No deformity or asymmetry. LUNGS: Clear to auscultation and percussion. No rales or rhonchi. HEART: Sinus rhythm. No ectopy. No murmur. No S3, S4. ABDOMEN: Soft, benign. Liver and spleen not enlarged. No rebound. EXTREMITIES: No peripheral edema. No varicose vein. No calf tenderness. DIAGNOSTIC DATA: ECG, normal sinus rhythm, 65 per minute, T-wave abnormality. Consider anterolateral ischemia. The patient is NPO since 10 p.m. Laboratory work pending. IMPRESSION: 1. Recurrent giant pterygium, left eye. 2. Hypertension, controlled. 3. Hyperlipidemia. 4. History of bronchial asthma. 5. Vertigo. 6. ECG changes and T-wave abnormality. Consider anterolateral ischemia. PLAN: Pterygium excision, left eye per Dr. George Francis. CONCLUSION: The patient is a 68-year-old, female who is going for elective surgery. Her vital signs are stable, on medication. The patient is on aspirin. EKG shows sinus rhythm with anterolateral ischemia, T-wave. The patient is NPO from 10 p.m. yesterday. The patient's condition optimized for surgery. Thank you very much, Dr. Francis, for privilege to participate in presurgical care of this interesting patient. Aline Khalil M.D. DR: ANDRA JOB#: [id number] CC:
--- NOTE | 2019-04-04 03:45 | Operative Note - Dictated ---
DATE OF OPERATION: 04/03/2019 NOTE: POOR AUDIO FACILITY: [facility]. SURGEON: George Francis M.D. DIE CUT OPERATOR: None. ANESTHESIOLOGIST: Teo Neri M.D. ANESTHESIA: Monitored anesthesia care (MAC) plus local anesthesia with 2% lidocaine with 1:100,000 epinephrine. PREOPERATIVE DIAGNOSES: 1. Giant pterygium of the left eye. 2. Corneal scar, left eye. 3. Symblepharon, left eye. 4. . POSTOPERATIVE DIAGNOSES: 1. Giant pterygium of the left eye. 2. Corneal scar, left eye. 3. Symblepharon, left eye. 4. . SURGERY PERFORMED: 1. Pterygium excision with conjunctival graft. 2. Superficial keratectomy. 3. Symblepharon excision. 4. Conjunctivoplasty. INFORMED CONSENT: The patient is a 68-year-old lady with history of osteoarthritis, coronary artery disease, hypertension, hypercholesterolemia. The patient is taking atorvastatin, aspirin, losartan/hydrochlorothiazide, and metoprolol succinate. She is a former smoker, but now denies smoking. She does not drink. She is not allergic to any medications. She has had cataract surgery in both eyes in 2019 and she has had pterygium surgery in the right eye in 2018. She has had pterygium surgery in the left eye 10 years ago, but now she had a bad recurrent pterygium in the left eye. She is complaining of blurry vision, sensation, pain, and redness in the left eye. On examination, there is some corneal scar and a huge giant pterygium overgrowth on the cornea with scar due to previous surgery in the and she has some conjunctivoplasty at the superior pole and lateral part of the conjunctiva. The rest of the cornea is clear. The temporal part of the cornea is clear. The anterior chamber is clean and . Pupillary reflexes normal. There is no RAPD. There is a posterior chamber intraocular lens in stable position. Funduscopy showed normal macula and optic disc is normal. She improved her vision in the left eye. The pterygium has to be removed. The corneal scar has to be removed. The symblepharon has to be removed and had to be corrected. INFORMED CONSENT: The nature of the surgery, treatment with alternatives, and potential complications were all explained in detail to the patient. The potential complications including, but not limited to bleeding, infection, scleral perforation, recurrence of the pterygium, symblepharon, strabismus, loss of vision, loss of the eye, and even . They were all explained in detail to the patient in her language in Burmese through an mandrel press hand. The patient voiced understanding and accepted all the complications. There is no alternative for this pathology and the only way to resolve it is to remove it through surgery. The patient elected to have all those surgeries to remove the pathology and then she signed the consent form, which is in the chart. DESCRIPTION OF SURGERY AND FINDINGS: Following that the patient was taken to the operating room in stable condition. Lidocaine gel, Akten 3.5% were applied to the conjunctiva of the left eye. IV sedation was given by the anesthesiologist, Dr. Neri. After adequate anesthesia and sedation had been achieved, the left eye was prepped and draped in sterile fashion for intraocular surgery. Following that a speculum was placed in the left eye. Following that, with 6-0 Vicryl, the superior and inferior part of the cornea was stitched. The globe was stitched to the temporal part of the orbit. Following that the border of the conjunctiva was marked with a marking pen. Following that 2% lidocaine with epinephrine was injected on the body and head of the conjunctiva. Following that the conjunctiva was excised from the sclera and the scar tissue was removed and the symblepharon was released and then the head of the pterygium was removed from the cornea. Following that, all the scar was removed from the cornea was confirmed and all scar tissue was removed with an electrical bur. Following that hemostasis was performed. Following that the scleral bed was measured with a caliper. Following that, the superior temporal side of the sclera was prepared for harvesting of conjunctiva. conjunctiva flap was harvested. Following that the rest of conjunctiva was . Following that the new conjunctival flap was glued to the sclera using glue to the sclera. Following that the extra glue was removed. Following that the conjunctiva around the left was released and glued to the conjunctival graft to make strong barrier for recurrence of the conjunctiva. At the end, all extra conjunctiva and extra glue was cut with Vannas scissors an hemostasis was performed. Following that lens was inserted on top of the cornea. Following that, the Maxitrol ointment was applied to the area. Following that, the eye was patched with eye patch . The patient tolerated the surgery without complications. Following that the patient was transferred to the recovery room. In the recovery room, postop orders and directions were given to the patient. The patient will be discharged home upon stabilization. The patient will be followed in my office tomorrow morning. George Francis M.D. DR: OSCAR JOB#: [id number] CC:
== END 2019-04-03 11:45 | disposition home or self-care (01) ==
LOC: SUR 06:07
DX: H11.002 Unspecified pterygium of left eye (principal); H17.9 Unspecified corneal scar and opacity; H11.23 Symblepharon; Z79.82 Long term (current) use of aspirin; Z79.899 Other long term (current) drug therapy; I10 Essential (primary) hypertension; E78.5 Hyperlipidemia, unspecified; R42 Dizziness and giddiness; E78.00 Pure hypercholesterolemia, unspecified; I25.10 Atherosclerotic heart disease of native coronary artery without angina pectoris; I11.9 Hypertensive heart disease without heart failure; M19.90 Unspecified osteoarthritis, unspecified site
CPT/HCPCS: 36415; 65426; 68320; 80048; 85025; 85610; 85730; 93005; J2250; J2704; 94003; 94150